=== PATIENT | male | born 1940 | race Caucasian/White ===

== ENCOUNTER 2016-07-04 17:24 | Emergency (ER) | payer MEDICARE ==
[~2016-07-04] VITALS: Ht 167.6 cm; Wt 75.0 kg
[~2016-07-04 17:24] MED LIST: CIPR-231 PO; FINA5TAB9 PO; NAPR220C11 PO; TAMS0.4C98 PO
[2016-07-04 17:28] VITALS: BP 154/101; PULSE 87; RESP 18; O2SAT 95
--- NOTE | 2016-07-04 18:09 | DRSVH ---
PROCEDURE: X-RAY CHEST ONE VIEW, PORTABLE ([id number]) INDICATIONS: 76 year-old male with chest pain. TECHNIQUE: One view of the chest was acquired. COMPARISON: [facility], CR, XR CHEST 1VW (PORTABLE), 12/07/2015, 18:25. [facility], CR, XR CHEST 1VW (PORTABLE), 04/19/2015, 4:01. [facility], CR, XR CHEST 2VW, 03/23, 22:35. FINDINGS: Surgical changes and devices: Patient is status post median sternotomy. Lungs and pleura: No pleural effusions or pneumothorax. Lungs are clear. Mediastinum: Mediastinal contours appear normal. Heart size is normal. There is aortic atheroscler osis. Bones and chest wall: No suspicious bony lesions. Overlying soft tissues appear unremarkable. IMPRESSION: No acute cardiopulmonary disease. Dictated by: Mohit Mascorro M.D. on 07/04/2016 at 18:01 Approved by: Mohit Mascorro M.D. on 07/04/2016 at 18:02
--- NOTE | 2016-07-04 18:54 | ED.REPORT ---
HPI-Chest Pain 40 and Over Date of Service July 04, 2016 ED Provider: Doc,Ed MD The patient is a 76 year old male with history of COPD, hypothyroidism and hyperlipidemia, who presents to the emergency department complaining of central chest pressure that has been constant over the last 2 days. His pain has been constant since onset. This evening it seemed to be more severe. The pressure is improved when he is siting upright and worse when he is lying flat. His pain is not changed with exertion or deep breaths. He has not had similar symptoms in the past. He denies nausea, dizziness, diaphoresis, shortness of breath, or radiating pain. He denies history of known cardiac disease, prior blood clots, diabetes mellitus or hypertension. He is a current tobacco smoker. He has been sneezing more than often recently due to seasonal allergies. Nursing Notes Stated Complaint: CHEST PRESSURE Chief Complaint: Chest Pain Nursing Notes Reviewed: Yes Allergies: Coded Allergies: No Known Allergies (Unverified Allergy, Unknown, 04/19/15) Scheduled Ciprofloxacin (Cipro) 500 Mg Tablet 500 MG PO BID Ciprofloxacin (Cipro) 500 Mg Tablet 500 MG PO BID Finasteride (Finasteride) 5 Mg Tablet 5 MG PO DAILY Tamsulosin (Flomax) 0.4 Mg Capsule 0.4 MG PO DAILY Scheduled PRN Naproxen Sodium (Aleve) 220 Mg Capsule 220 MG PO Q12H PRN PRN PRN General Time Seen by MD: 18:47 Chief Complaint Chest pressure Hx Obtained From: Patient Arrived By: Walk-in Sudden in Onset?: Yes Onset Occurred: 2 days ago Symptom Duration: Since onset Location: : Substernal Quality: Pressure Radiation: : Does not radiate Severity: Current: Moderate Severity: Maximum: Severe Recent Healthcare: No recent doctor visit, No recent hospitalization Similar Sx Previous: No Risk Factors Well's Criteria for PE Well's PE Score: 0-2 pts (low risk 3.6%) Past Medical History Past Medical History COPD Hypothyroidism Hyperlipidemia Hemorrhoids Swollen prostate- currently receiving treatment. No history of hypertension or cardiac disease Past Surgical History Removal of benign mass behind sternum Family History His father at age 96 and mother at age 93. They both had COPD. Smoking History Current Every Day Smoker Social History Alcohol Use: Denies alcohol use Drug Use: Denies drug use Other Social History: Good social support, , Local resident Ambulatory Status Independent Review of Systems Respiratory: Denies: Pleuritic pain, Shortness of breath Cardiovascular: Reports: Chest pain GI: Denies: Nausea Musculoskeletal: Denies: Back pain, Extremity pain, Neck pain Neurologic: Denies: Dizziness Complete sys rev & neg: except as marked. Allergy / Immune: Reports: Sneezing Physical Exam Initial Vital Signs Vital Signs (First) Date Time Temp Pulse Resp B/P Pulse Ox O2 Delivery O2 Flow Rate FiO2 07/04/16 17:28 36.1 87 18 154/101 95 Room Air Initial VS: Reviewed Head / Eyes: Atraumatic, Normocephalic, PERRL ENT: Mucous membranes moist, Conjunctiva normal, No scleral icterus Neck: Supple, Non-tender, Full range of motion Lymphatic: No lymphadenopathy Extremities: Vascular intact, Neuro intact, No swelling, No tenderness Skin: Warm, Dry, No cyanosis Neurologic: Alert, Oriented, Nonfocal Psychiatric: Mood/affect normal, Behavior normal, Normal thought content General/Constitutional: Awake, Alert, No acute distress, Well appearing Respiratory / Chest: Atraumatic, Breath sounds NL, Breath sounds = bilat, No respiratory distress, No rales, No rhonchi, No wheezing, No stridor, No chest tenderness The pain is not reproducible. Cardiovascular: Heart rate NL, Regular rhythm, Heart sounds NL, No murmurs, No rubs, Peripheral circulation NL, Pulses = bilaterally, No gross BP differential Abdomen: Atraumatic, Soft, Non-tender, McBurney's non-tender, No guarding, No rebound, BS normoactive, No distention, No hernia, No palpable mass Lower Extremity / Pelvis / MS: No swelling, Neurologic intact, Vascular intact , No edema Interpretation & Diagnostics Lab Results Interpretation Result Diagram: 07/04/16183907/04/16 184 Test 07/04/16 18:40 White Blood Count 7.1th/mm3 (3.8-10.1) Red Blood Count 4.75mil/mm3 (4.40-5.80) Hemoglobin 15.4g/dL (13.8-17.2) Hematocrit 43.8% (41.0-50.0) Mean Corpuscular Volume 92.2fL (81-100) Mean Corpuscular Hemoglobin 32.4pg (27.0-35.0) Mean Corpuscular Hemoglobin Concent 35.2% (32.0-37.0) Red Cell Distribution Width 12.5% (12.3-15.4) Platelet Count 209bil/L (150-400) Neutrophils (%) (Auto) 62.7% (40-74) Lymphocytes (%) (Auto) 25.5% (14-46) Monocytes (%) (Auto) 8.5% (4-12) Eosinophils (%) (Auto) 2.8% (0-5) Basophils (%) (Auto) 0.4% (0-3) D-Dimer 1.67mg/L FEU (<0.50) Sodium Level 138mEq/L (134-144) Potassium Level 4.2mEq/L (3.5-5.2) Chloride Level 102mEq/L (97-108) Carbon Dioxide Level 22mmol/L (18-29) Blood Urea Nitrogen 15mg/dL (8-27) Creatinine 0.63mg/dL (0.76-1.27) Estimat Glomerular Filtration Rate 132mL/min (>59) Glucose Level 104mg/dL (60-99) Calcium Level 9.4mg/dL (8.5-10.1) Magnesium Level 2.3mg/dL (1.6-2.6) Total Bilirubin 0.3mg/dL (0.0-1.2) Aspartate Amino Transf (AST/SGOT) 24U/L (0-50) Alanine Aminotransferase (ALT/SGPT) 16U/L (0-44) Alkaline Phosphatase 67U/L (25-160) Troponin T < 0.010ug/L (0.0-0.011) Total Protein 7.0g/dL (6.4-8.4) Albumin 3.9g/dL (3.4-5.0) ECG Interpretation ECG Interpretation: Sinus rhythm with a rate of [address] wave changes inferiorly Similar to previous EKG taken in 2016 Time: 17:35 Interpreted by: ED physician X-Ray Chest Interpretation Chest Xray Interpretation: IMPRESSION: No acute cardiopulmonary disease. Dictated by: Mohit Mascorro M.D. on 07/04/2016 at 18:01 Interpretation / Wet Read by: Interpret - Radiologist CT Chest Interpretation IMPRESSION: 1. No evidence for central pulmonary embolism. 2. Right lower lobe scarring as before, without acute pulmonary disease. 3. Cholelithiasis again noted. Dictated by: Mohit Mascorro M.D. on 07/04/2016 at 20:23 Study type: CT pulm angiogram Interpretation / Wet Read by: Interpret - Radiologist Re-Eval/Medical Decision Source of Hx: Old records Time of Eval: 19:06 Re-Evaluation/Progress Note: Tobacco cessation provided. Time of Eval: 20:00 Re-Evaluation/Progress Note: Discussed plan for CTA. Time of Eval: 20:53 Re-Evaluation/Progress Note: Rechecked the patient. Discussed plan for discharge. All questions were addressed. Counseled Regarding: Diagnosis, Lab results, Need for follow-up, When/why to return to ED Discharge & Departure Primary Impression: Chest pain Chest pain type: unspecified Qualified Code: R07.9 - Chest pain, unspecified Disposition: Home Discharge Condition All VS Reviewed: Yes Condition: Stable Patient Instructions: Chest Pain (ED) Additional Instructions: Thank you for entrusting us with your care today. Your workup today included an EKG, blood work, and chest x-ray. All of the results are reassuring. There is no evidence of a heart attack, pneumonia, or blood clot. Call the clinic tomorrow for follow-up appointment and further investigation as indicated. Return to the emergency department for increased pain, shortness of breath, lightheadedness, palpitations, or any other new or concerning symptoms. Referrals: Yury Thurman MD (PCP) Kate Attestation Portions of this note were transcribed by Lubna Ortega. I, Dr. Chacon personally performed the history, physical exam and medical decision-making; I reviewed and confirmed the accuracy of the information in the transcribed note. Signed by: Kate Trujillo, 07/04/2016 at 2100. copies to: Yury Thurman MD, Kirk H MD July 04, 2016 18:54 Lubna Ortega July 04, 2016 18:57
[2016-07-04 19:09] LABS: BASOPHILS % (AUTO) 0.4 % (0-3); EOSINOPHILS % (AUTO) 2.8 % (0-5); MONOCYTES % (AUTO) 8.5 % (4-12); Mean Corpuscular Hemoglobin 32.4 pg (27.0-35.0); Mean Corpuscular Volume 92.2 fL (81-100); NEUTROPHILS % (AUTO) 62.7 % (40-74); Platelet Count 209 bil/L (150-400)
[2016-07-04 19:38] LABS: TROPONIN T < 0.010 ug/L (0.0-0.011)
[2016-07-04 19:41] LABS: Magnesium 2.3 mg/dL (1.6-2.6)
--- NOTE | 2016-07-04 20:39 | DRSVH ---
PROCEDURE: CT ANGIO CHEST PULMONARY EMBOLISM ([id number]) INDICATIONS: 76 year-old male with chest pressure and pain. TECHNIQUE: After the administration of intravenous contrast, 2 mm thick sections acquired from the pulmonary api travis to the posterior costophrenic angles. 3-dimensional maximum intensity projection (MIP) coronal a nd sagittal reformats were then acquired through the thorax. For radiation dose reduction, the follo wing was used: automated exposure control, adjustment of mA and/or kV according to patient size. COMPARISON: [facility], CT, CT ANGIO CHEST PE, 12/07/2015, 21:56. [facility], CT, CHEST ANGIO-PE, 01/14/2011, 23:30. FINDINGS: Image quality: Excellent. Pulmonary arteries: Pulmonary arteries are normal in size, and demonstrate no intraluminal filling d efects to suggest central pulmonary embolism. Lungs and pleura: Lungs are clear, except for right lower lung linear scarring as before. No pleura l effusions or pneumothorax. Central and peripheral airways are patent. Mediastinum: Heart size is normal, without pericardial effusion. No mediastinal or hilar adenopathy . Thoracic aorta is normal in caliber and enhancement. Esophagus is normal in caliber, without hiat al hernia. Bones and chest wall: No suspicious bony lesions. Ribs and thoracic spine appear intact throughout. Thyroid gland is normal in size, partially obscured by contrast streak artifact in the left subclav nathan vein. No axillary or supraclavicular adenopathy. Incidental right infraspinatus intramuscular li amadeo is again noted. Abdomen: Several gallstones are again noted. Other visualized upper abdominal solid organs appear no rmal in the early arterial phase of enhancement. IMPRESSION: 1. No evidence for central pulmonary embolism. 2. Right lower lobe scarring as before, without acute pulmonary disease. 3. Cholelithiasis again noted. Dictated by: Mohit Mascorro M.D. on 07/04/2016 at 20:23 Approved by: Mohit Mascorro M.D. on 07/04/2016 at 20:32
[2016-07-04 21:21] VITALS: BP 148/88; PULSE 88; RESP 18; O2SAT 97
== END 2016-07-04 21:00 | disposition home or self-care (01) ==
LOC: SED 17:24
DX: R07.2 Precordial pain (principal); J44.9 Chronic obstructive pulmonary disease, unspecified; E03.9 Hypothyroidism, unspecified; E78.5 Hyperlipidemia, unspecified; F17.200 Nicotine dependence, unspecified, uncomplicated
CPT/HCPCS: 36415; 71010; 71275; 80053; 83735; 84484; 85025; 85378; 93005; 99285; Q9967

== ENCOUNTER 2016-10-17 09:44 | Emergency (ER) | payer MEDICARE ==
[~2016-10-17] VITALS: Ht 167.6 cm; Wt 70.0 kg
[2016-10-17 09:46] VITALS: BP 150/101; PULSE 106; RESP 20; O2SAT 96
--- NOTE | 2016-10-17 09:55 | ED.REPORT ---
HPI- Male Date of Service Oct 17, 2016 ED Provider: Dr. Day Pt is a 76 y/o male w/ a hx of BPH presenting to the ED c/o urinary retention onset last night. The patient was able to urinate last night but only dribbled this morning when he attempted to void and is now experiencing intense suprapubic fullness. This has happened 1.5 years ago thought to be caused by BPH. Pt denies fever, vomiting. Nursing Notes Stated Complaint: UNABLE TO URINATE Chief Complaint: Male Abdominal Pain Nursing Notes Reviewed: Yes Allergies: Coded Allergies: No Known Allergies (Unverified Allergy, Unknown, 04/19/15) Scheduled Cephalexin (Keflex) 250 Mg Capsule 250 MG PO QID Ciprofloxacin (Cipro) 500 Mg Tablet 500 MG PO BID Ciprofloxacin (Cipro) 500 Mg Tablet 500 MG PO BID Finasteride (Finasteride) 5 Mg Tablet 5 MG PO DAILY Tamsulosin (Flomax) 0.4 Mg Capsule 0.4 MG PO DAILY Scheduled PRN Naproxen Sodium (Aleve) 220 Mg Capsule 220 MG PO Q12H PRN PRN PRN General Time Seen by MD: 09:53 Chief Complaint Unable to urinate Hx Obtained From: Patient Arrived By: Walk-in Onset Occurred: Yesterday Symptom Duration: Since onset Location: : Suprapubic Quality: Fullness Severity: Current: Moderate Severity: Maximum: Moderate Recent Healthcare: Previous diagnosis Similar Sx Previous: Yes Past Medical History Past Medical History COPD Hypothyroidism Hyperlipidemia Hemorrhoids BPH No history of hypertension or cardiac disease Past Surgical History Removal of benign mass behind sternum Family History His father at age 96 and mother at age 93. They both had COPD. Smoking History Current Every Day Smoker Social History Alcohol Use: Denies alcohol use Drug Use: Denies drug use Other Social History: Good social support, , Local resident Ambulatory Status Independent Review of Systems Constitutional: Denies: Fever GI: Reports: Abdominal pain, Denies: Vomiting Male: Reports Urination decreased Complete sys rev & neg: except as marked. Physical Exam Initial Vital Signs Vital Signs (First) Date Time Temp Pulse Resp B/P Pulse Ox O2 Delivery O2 Flow Rate FiO2 10/17/16 09:46 35.9 106 20 150/101 96 Initial VS: Reviewed, Vital signs abnormal Head / Eyes: Atraumatic, Normocephalic ENT: Mucous membranes moist, Conjunctiva normal Neck: Supple, Full range of motion Respiratory: Breath sounds normal, Clear to auscultation, No respiratory distress Cardiovascular: Regular rate & rhythm, Heart sounds normal, Intact distal pulses Extremities: Vascular intact, Neuro intact Skin: Warm, Dry, No cyanosis Neurologic: Alert, Oriented, Nonfocal Psychiatric: Mood/affect normal, Behavior normal, Normal thought content General/Constitutional: Awake, Alert, No acute distress, Cooperative, Not toxic appearing Appearance / Presentation: Positive: Uncomfortable Abdomen: Soft, Non-tender, No guarding, No rebound Suprapubic fullness Interpretation & Diagnostics Lab Results Interpretation Test 10/17/16 10:20 Hold Urine Received (Received) Lab Results Interpretation: Urine dip: no signs of UTI Re-Eval/Medical Decision Med Decision/Clinical Course Recurrent urinary retention likely due to BPH. NO Signs of infection. Discharged with a Parra, start prophylactic antibiotics, recommend follow-up with urology. Return precautions given. Source of Hx: Old records Re-Evaluation/Progress : Time of Eval: 10:47 Re-Evaluation/Progress Note: Pt rechecked. Catheter relieved symptoms. Informed pt of plan for discharge. Pt understands and agrees with plan for discharge. F/U instructions and RTER warnings given. All questions addressed. Counseled Regarding: Diagnosis, Need for follow-up, When/why to return to ED Discharge & Departure Impression: Primary Impression: Acute urinary retention Disposition: Home Discharge Condition All VS Reviewed: Yes Condition: Stable Additional Instructions: Leave the catheter in until seen by your urologist. Use Keflex for prophylaxis. Return to the ER as needed. Referrals: Yury Thurman MD (PCP) Scribe Attestation Portions of this note were transcribed by Earnest Briseno. I, Dr. Day personally performed the history, physical exam and medical decision-making; I reviewed and confirmed the accuracy of the information in the transcribed note. copies to: Yury Thurman MD, Timothy [place] Oct 17, 2016 09:55 EARNEST BRISENO Oct 17, 2016 09:58
[2016-10-17] MEDS ORDERED: CEPH-511 PO (10:42)
[2016-10-17 11:24] VITALS: BP 145/89; PULSE 89; RESP 20; O2SAT 96
== END 2016-10-17 11:10 | disposition home or self-care (01) ==
LOC: SED 09:44
DX: R33.9 Retention of urine, unspecified (principal); E78.5 Hyperlipidemia, unspecified; E03.9 Hypothyroidism, unspecified; F17.200 Nicotine dependence, unspecified, uncomplicated